=== PATIENT | female | born 1985 | race Caucasian/White ===

== ENCOUNTER → 2017-04-03 | Day surgery (SDC) | payer OTHER ==
[~2017-04-03] MED LIST: ACETAMINOPHEN 1000 MG/100 ML VIAL IV ONE; ACETAMINOPHEN/HYDROcodone 325 MG/5 MG TAB ONE; BUPIVACAINE/EPINEPHRINE 0.25% 50 ML VIAL ONE; GENTAMICIN SULFATE 80 MG/2 ML VIAL ONE; KETOROLAC TROMETHAMINE 30 MG/ML (IVP) VIAL IV PUSH ONE; LACTATED RINGER'S 1000 ML INJ 1,000 ML ONE; LIDOCAINE 1%/EPINEPHrine 1:100,000 SOLN 20 ML VIAL ONE; MIDAZOLAM HCL 2 MG/2 ML VIAL ONE; ONDANSETRON HCL 4 MG/2 ML VIAL IV PUSH ONE; PROPOFOL 200 MG/20 ML AMP IV ONE; SODIUM CHLORIDE 0.9% 20 ML VIAL ONE; ceFAZolin INJ 1,000 MG VIAL ONE
--- NOTE | 2017-04-03 09:50 | TN ---
cc: PHUC SEALS M.D. DATE OF SURGERY April 03, 2017 PREOPERATIVE DIAGNOSIS breast atrophy. POSTOPERATIVE DIAGNOSIS breast atrophy. PROCEDURE Bilateral augmentation mammoplasty. SURGEON Phuc Seals MD ANESTHESIA LMA general plus a breast block of a total of 60 cc of 1% lidocaine with epinephrine mixed with 0.25% Marcaine at a 2:1 ratio. IMPLANT DATA, PLACEMENT AND TECHNIQUE Inframammary incision, retropectoral placement. Cohesive gels Latosha Canchola, model SRF, volume 335 cc. Serial number of the right breast implant device [id number]. Serial number of the left breast implant device [id number]. PROCEDURE IN DETAIL She was properly consented, marked, properly anesthetized, the skin sterilized with Betadine solution and sterile draping applied. Utilizing a 4-4.5 cm inframammary incision, the retroperitoneal plane was encountered and the release of the inferomedial fibers. The pocket was created and irrigated with triple antibiotic solution and the meticulous hemostasis was assured. After isolating the skin, the implant was introduced utilizing no-touch technique. The contralateral side was approached exactly in the same manner. The patient was sat up, blunt touch-ups were done to assure best symmetry possible. With this, the patient was turned supine and multiple 2-0 Monocryl suture layered closure was done in the breast parenchyma, Dejon's fascia, dermis and subcu. After Mastisol, Steri-Strips were applied along with some absorbent dressings and a snug brassiere. Overall the patient tolerated the procedure well. She was awakened, extubated in the operating room, transferred back to the postanesthesia care unit in stable addition. No complications appreciated. The patient tolerated the procedure fairly well. MD REAGAN Ordonez/ZOE /9:34 AM /9:40 AM
== END | disposition home or self-care (01) ==
LOC: ESDC 06:56
PROVIDERS: ATTEND Plastic Surgery
DX: Z41.1 Encounter for cosmetic surgery (principal)
CPT/HCPCS: 00402; 19325; C1789; J0131; J0690; J1580; J1885; J2250; J2405; J3010; J7120